=== PATIENT | female | born 1980 | race Caucasian/White ===

== ENCOUNTER → 2018-03-25 | Outpatient (CLI) | END | disposition home or self-care (01) ==

== ENCOUNTER → 2018-06-24 | Outpatient (CLI) | END | disposition home or self-care (01) ==

== ENCOUNTER 2018-09-04 07:19 | Emergency (ER) | payer OTHER ==
[~2018-09-04] VITALS: Wt 59.1 kg
[~2018-09-04 07:19] MED LIST: ALBU18HF INHALATION; OMEP20CA16 PO
[2018-09-04 07:21] VITALS: BP 113/70; PULSE 89; RESP 18
[2018-09-04] MEDS ORDERED: IBUPROFEN 600 MG TAB PO ONE (08:00)
[2018-09-04] MEDS ORDERED: ACET500C5 PO (09:16)
[2018-09-04] MEDS ORDERED: DOCU-144 PO (09:19)
--- NOTE | 2018-09-04 22:23 | ERD ---
ER Documentation Chief Complaint Chief Complaint pelvic pain HPI Patient is a 38-year-old female who presents to the ER for multiple complaints. Patient states that she has had pelvic pain for the last week. She describes the pain to be throughout her lower pelvic region and her suprapubic region. Patient states she does have a history of fibroids and she is not sure this is contributing to her pain. 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 Patient states 1 month ago she did have a CT scan and she was told that her left kidney was swollen. Patient states she was told to follow-up with a urologist to have her "kidney swelling" drained. Patient denies any fevers, chills, nausea, vomiting, gross hematuria. Patient also reporting bilateral breast pain intermittently for the last few days. Patient denies any falls or trauma. Patient denies any shortness of breath. Patient states her last menstrual period was 1 week ago. ROS All systems reviewed and are negative except as per history of present illness. Medications Home Meds Active Scripts Docusate Sodium* (Colace*) 100 Mg Capsule, 100 MG PO TID, #30 CAP Prov:WILIAN LOPEZ PA-C 09/04/18 Acetaminophen* (Tylophen*) 500 Mg Capsule, 1 CAP PO Q6H PRN for PAIN AND OR ELEVATED TEMP, #20 CAP Prov:WILIAN LOPEZ PA-C 09/04/18 Reported Medications Omeprazole* (Omeprazole*) 20 Mg Capsule.dr, 20 MG PO DAILY, #30 CAP 11/04/15 Albuterol Sulfate* (Ventolin HFA*) 18 Gm Hfa.aer.ad, 2 PUFF INHALATION Q4H, #1 INHALER 11/04/15 Allergies Allergies: Coded Allergies: No Known Drug Allergies (Unverified Allergy, Unknown, 09/04/18) PMhx/Soc History of Surgery: No Anesthesia Reaction: No Hx Neurological Disorder: No Hx Respiratory Disorders: Yes (ASTHMA USED INHALER 2 WEEKS ALBUTEROL) Hx Cardiac Disorders: No Hx Psychiatric Problems: No Hx Miscellaneous Medical Probl: No Hx Alcohol Use: No Hx Substance Use: No Hx Tobacco Use: No FmHx Family History: No diabetes Physical Exam Vitals Vital Signs Date Temp Pulse Resp B/P (MAP) Pulse Ox O2 O2 Flow FiO2 Time Delivery Rate 09/04/18 98.9 89 18 113/70 99 07:21 (84) Physical Exam GENERAL: Well-developed, well-nourished female. Appears in no acute distress. HEAD: Normocephalic, atraumatic. EYES: Pupils are equally reactive bilaterally. EOMs grossly intact. No conjunctival erythema. NECK: Supple. No meningismus. Normal range of motion of the neck. BILATERAL: Fibrocystic breast tissue noted. No palpable masses noted. No surrounding erythema, warmth, induration noted on bilateral breasts. LUNG: Clear to auscultation bilaterally. No rhonchi, wheezing, rales or coarse breath sounds. HEART: Regular rate and rhythm. No murmurs, rubs or gallops. ABDOMEN: No scars, ecchymosis or rashes noted. Soft, and nondistended. Minimally tender to palpation to bilateral lower quadrants and suprapubic region. No rebound tenderness, no guarding. (-) McBurney's point tenderness. No CVA tenderness. EXTREMITIES: Equal pulses bilaterally. No peripheral clubbing, cyanosis or edema. No unilateral leg swelling. NEUROLOGIC: Alert and oriented. Moving all four extremities without any difficulty. Normal speech. Steady gait. SKIN: Normal color. Warm and dry. No rashes or lesions. Result Diagram: 09/04/18 0757 09/04/18 0758 Results 24 hrs Laboratory Tests Test 09/04/18 07:57 09/04/18 07:58 09/04/18 08:03 09/04/18 08:04 White Blood Count 6.1 10^3/ul Red Blood Count 4.75 10^6/ul Hemoglobin 15.2 g/dl Hematocrit 45.0 % Mean Corpuscular 94.7 fl Volume Mean Corpuscular 32.0 pg Hemoglobin Mean Corpuscular 33.8 g/dl Hemoglobin Concent Red Cell 11.8 % Distribution Width Platelet Count 206 10^3/UL Mean Platelet 10.7 fl Volume Immature 0.200 % Granulocytes % Neutrophils % 51.9 % Lymphocytes % 32.6 % Monocytes % 9.7 % Eosinophils % 4.1 % Basophils % 1.5 % Nucleated Red Blood 0.0 /100WBC Cells % Immature 0.010 10^3/ul Granulocytes # Neutrophils # 3.2 10^3/ul Lymphocytes # 2.0 10^3/ul Monocytes # 0.6 10^3/ul Eosinophils # 0.3 10^3/ul Basophils # 0.1 10^3/ul Nucleated Red Blood 0.0 10^3/ul Cells # Sodium Level 141 mmol/L Potassium Level 4.0 mmol/L Chloride Level 105 mmol/L Carbon Dioxide 24 mmol/L Level Anion Gap 12 Blood Urea Nitrogen 12 mg/dl Creatinine 0.69 mg/dl Est Glomerular > 60 mL/min Filtrat Rate mL/min Glucose Level 79 mg/dl Calcium Level 9.1 mg/dl Total Bilirubin 0.5 mg/dl Direct Bilirubin 0.00 mg/dl Indirect Bilirubin 0.5 mg/dl Aspartate Amino 33 IU/L Transf (AST/SGOT) Alanine 10 IU/L Aminotransferase (A LT/SGPT) Alkaline 81 IU/L Phosphatase Total Protein 8.6 g/dl Albumin 4.7 g/dl Globulin 3.90 g/dl Albumin/Globulin 1.20 Ratio Bedside Urine pH 5.5 (LAB) Bedside Urine Trace Protein (LAB) Bedside Urine Negative Glucose (UA) Bedside Urine Negative Ketones (LAB) Bedside Urine Blood Trace-lysed Bedside Urine Negative Nitrite (LAB) Bedside Urine Negative Leukocyte Esterase (L POC Beta HCG, NEGATIVE Qualitative Current Medications Medications Dose Sig/Lillian Start Time Status Last (Trade) Ordered Route PRN Stop Time Admin Dose Reason Admin Ibuprofen 600 mg ONCE ONCE 09/04/18 DC 09/04/18 (Motrin) PO 08:00 08:02 09/04/18 08:01 Procedures/MDM ED COURSE: The patient was stable throughout ED course. I kept the patient and/or family informed of laboratory and diagnostic imaging results throughout the ED course. DIAGNOSTIC IMAGING: Read by radiologist. Patient: MICHAEL MARISCAL : 1980 Age: 38 Sex: F MR #: [id number] DOS: 09/04/18814 Ordering MD: WILIAN LOPEZ PA-C Location: [facility] Room/Bed: PROCEDURE: CT Abdomen and Pelvis without contrast. CLINICAL INDICATION: Left flank pain TECHNIQUE: CT scan of the abdomen and pelvis without contrast was performed on a multi-detector high-resolution CT scanner. Coronal and sagittal reformatted images obtained from the axial source images. Images were reviewed on a high- resolution PACS workstation. Exam CTDI 5.61 mGy Exam DLP 294.73 mGy-cm DICOM images are available. One or more of the following dose reduction techniques were utilized: 1.) Automated exposure control 2.) Adjustment of the mA +/- kV according to patient's size 3.) Use of iterative reconstruction technique. COMPARISON: None FINDINGS: CT abdomen: LOWER THORAX: Lung bases are clear. LIVER AND GALLBLADDER: No abnormal findings. SPLEEN: Normal. PANCREAS: Normal. ADRENAL GLANDS: Normal. KIDNEYS: There is moderate left hydronephrosis and a 3 mm calculus is identified at the upper pole of the kidney. No associated perinephric fluid stranding. The left upper ureter is slightly dilated. The lower ureter is not clearly seen within the pelvis. A punctate 2 mm calcified density within the left lower pelvis projects in the expected location of the lower ureter. VASCULATURE: Abdominal aorta is normal in caliber. LYMPH NODES: No significant retroperitoneal or mesenteric lymphadenopathy. BOWEL AND MESENTERY: Stomach and small bowel are unremarkable. Moderate fecal loading throughout the large bowel. A normal appendix is identified. CT pelvis: Urinary bladder is unremarkable. Uterus and adnexal structures appear normal for age. No significant pelvic free fluid or evidence of lymphadenopathy. Bones: Regional bones are unremarkable. IMPRESSION: 1. Moderate left hydronephrosis and 3 mm calculus at the upper pole of the left kidney. Distal left ureter not clearly seen, however a punctate 2 mm calculus in the left lower pelvis projects near the expected location of the lower ureter, possibly an a ureteral stone. 2. Large bowel full of stool, question constipation. RPTAT: [facility] Physician Romulo Date Time Electronically viewed and signed by Physician Romulo on 09/04/2018 08:49 xB/ CC: WILIAN LOPEZ PA-C [id number] PROCEDURES: None. MEDICATIONS GIVEN: Ibuprofen Patient tolerated medication well with no adverse reactions. Patient reported improvement in pain. MEDICAL DECISION MAKING: This is a 38-year-old female presents to the ER for concerns of who presents with concerns of left-sided kidney swelling as well as bilateral breast pain.. Vital signs were reviewed. Patient was afebrile. Patient was not hypoxic. I did discuss the patient's kidneys along with her further. Patient did have a a copy of her previous CT report with her which stated that patient had a 2 mm kidney stone within her left kidney as well as moderate to severe hydronephrosis. Note this report was from July 2018. Blood work was obtained. CBC showed no evidence of systemic infection or severe anemia. CMP showed no evidence of electrolyte abnormalities, severe acidosis, alkalosis, renal failure, or liver disease. Lipase showed no evidence of acute pancreatitis. UA showed trace blood, negative leukocyte esterase, negative nitrites. Urine test was negative. CT abdomen pelvis was obtained. CT abdomen and pelvis showed 1. Moderate left hydronephrosis and 3 mm calculus at the upper pole of the left kidney. Distal left ureter not clearly seen, however a punctate 2 mm calculus in the left lower pelvis projects near the expected location of the lower ureter, possibly an a ureteral stone. 2. Large bowel full of stool, question constipation. Patient's case was discussed with supervising physician . Discussed the patient's previous CT imaging study results in comparison to today's results. ALSO reviewed the patient's blood work findings from today. He advised me to have the patient follow-up with urology on an outpatient basis. Patient was given referral information for Dr. Crook. Patient breast exam revealed fibrocystic breasts however no large palpable masses are noted. Patient was advised to follow up with her primary care physician for breast ultrasound versus mammogram on outpatient basis. Unable to rule out malignancy at this time. At this time, the patient presentation is most consistent with moderate hydronephrosis secondary to nephrolithiasis, constipation and bilateral breast pain. Low suspicion for urinary retention, acute kidney injury, dehydration, ACS, AAA, mesenteric ischemia, lower lobe pneumonia, DKA, bowel obstruction, DKA, cholecystitis, choledocholithiasis, pancreatitis, ascending cholangitis, splenic rupture, diverticulitis, UTI, pyelonephritis, ectopic , tubal ovarian abscess, ovarian torsion or PID. Patient was given a copy of all blood work and imaging studies obtained today. PRESCRIPTIONS: Colace Ibuprofen DISCHARGE: At this time, patient is stable for discharge and outpatient management. I have instructed the patient to follow-up with his/her primary care physician in 1-2 days. I have instructed the patient to promptly return to the ER at any time for any new or worsening symptoms including increased pain, nausea, vomiting, diarrhea, fever, weakness or LOC. The patient and/or family expressed understanding of and agreement with this plan. All questions were answered. Home care instructions were provided. Disclaimer: Inadvertent spelling and grammatical errors are likely due to EHR/dictation software use and do not reflect on the overall quality of patient care. Also, please note that the electronic time recorded on this note does not necessarily reflect the actual time of the patient encounter. Departure Diagnosis: Primary Impression: Hydronephrosis Hydronephrosis type: unspecified Qualified Codes: N13.30 - Unspecified hydronephrosis Additional Impressions: Nephrolithiasis Breast pain Constipation Constipation type: unspecified constipation type Qualified Codes: K59.00 - Constipation, unspecified Condition: Fair Patient Instructions: Breast Self-Exam (BSE), Hydronephrosis Adult Referrals: SHIMA CROOK MD [facility] YOU HAVE RECEIVED A MEDICAL SCREENING EXAM AND THE RESULTS INDICATE THAT YOU DO NOT HAVE A CONDITION THAT REQUIRES URGENT TREATMENT IN THE EMERGENCY DEPARTMENT. FURTHER EVALUATION AND TREATMENT OF YOUR CONDITION CAN WAIT UNTIL YOU ARE SEEN IN YOUR DOCTORS OFFICE WITHIN THE NEXT 1-2 DAYS. IT IS YOUR RESPONSIBILITY TO MAKE AN APPOINTMENT FOR FOLOW-UP CARE. IF YOU HAVE A PRIMARY DOCTOR --you should call your primary doctor and schedule an appointment IF YOU DO NOT HAVE A PRIMARY DOCTOR YOU CAN CALL OUR PHYSICIAN REFERRAL HOTLINE AT IF YOU CAN NOT AFFORD TO SEE A PHYSICIAN YOU CAN CHOSE FROM THE FOLLOWING [facility] [address] [facility] [address] [facility] [address] [facility] [address] [facility] [address] [facility]. [facility]. [address] [facility] YOU HAVE RECEIVED A MEDICAL SCREENING EXAM AND THE RESULTS INDICATE THAT YOU DO NOT HAVE A CONDITION THAT REQUIRES URGENT TREATMENT IN THE EMERGENCY DEPARTMENT. FURTHER EVALUATION AND TREATMENT OF YOUR CONDITION CAN WAIT UNTIL YOU ARE SEEN IN YOUR DOCTORS OFFICE WITHIN THE NEXT 1-2 DAYS. IT IS YOUR RESPONSIBILITY TO MAKE AN APPOINTMENT FOR FOLOW-UP CARE. IF YOU HAVE A PRIMARY DOCTOR --you should call your primary doctor and schedule and appointment IF YOU DO NOT HAVE A PRIMARY DOCTOR YOU CAN CALL OUR PHYSICIAN REFERRAL HOTLINE AT . IF YOU CAN NOT AFFORD TO SEE A PHYSICIAN YOU CAN CHOSE FROM THE FOLLOWING [facility] INSTITUTIONS: [facility] [address] [place] [address] [facility] [address] [place] [address] [facility] [address] [place] [address] Additional Instructions: Follow-up with Dr. Crook for further management of your symptoms. Call your primary care doctor TOMORROW for an appointment during the next 1-2 days.See the doctor sooner or return here if your condition worsens before your appointment time. Follow-up with your primary care physician for further management of your breast pain. He will likely need a mammogram on an outpatient basis. WILIAN LOPEZ PA-C Sep 04, 2018 22:20
== END 2018-09-04 09:26 | disposition home or self-care (01) ==
LOC: FTE 07:19
DX: N13.30 Unspecified hydronephrosis (principal); N20.0 Calculus of kidney; N64.4 Mastodynia; K59.00 Constipation, unspecified; J45.909 Unspecified asthma, uncomplicated
CPT/HCPCS: 74176; 80053; 81003; 81025; 85025; Z7502; Z7610